=== PATIENT | male | born 1970 | race Caucasian/White ===

== ENCOUNTER 2019-08-23 18:43 | Emergency (ER) | payer OTHER ==
[~2019-08-23] VITALS: Ht 167.6 cm; Wt 68.0 kg
[2019-08-23] MEDS ORDERED: IBUPROFEN 600600 M1 PO (20:13)
[2019-08-23 22:06] VITALS: BP 158/106
== END 2019-08-23 22:12 | disposition home or self-care (01) ==
LOC: ER 18:43
DX: S93.492A Sprain of other ligament of left ankle, initial encounter (principal); S86.092A Other specified injury of left Achilles tendon, initial encounter; W01.0XXA Fall on same level from slipping, tripping and stumbling without subsequent striking against object, initial encounter; Y93.89 Activity, other specified; Y92.89 Other specified places as the place of occurrence of the external cause; Y99.8 Other external cause status

== ENCOUNTER 2019-08-25 19:26 | Emergency (ER) | payer OTHER ==
[~2019-08-25] VITALS: Ht 170.2 cm; Wt 74.8 kg
[~2019-08-25 19:26] MED LIST: IBUPROFEN 600600 M1 PO
[2019-08-25 19:48] VITALS: BP 128/85
== END 2019-08-25 19:48 ==
LOC: ER 19:26
DX: F15.10 Other stimulant abuse, uncomplicated (principal)